=== PATIENT | female | born 1990 | race African-American/Black ===

== ENCOUNTER 2017-03-09 18:34 | Inpatient (IN) ==
[2017-03-09] MEDS ORDERED: ONDANSETRON 4 MG/2 ML VIAL IV STA (19:20)
[2017-03-09] MEDS ORDERED: MORPHINE 2 MG/1 ML SYRINGE IV STA (19:20)
[2017-03-09] MEDS ORDERED: MORPHINE 2 MG/1 ML SYRINGE ONE (20:18)
[2017-03-09] MEDS ORDERED: ONDANSETRON 4 MG/2 ML VIAL ONE (20:18)
--- NOTE | 2017-03-09 20:30 | Ultrasound Report ---
History is abdominal pain There are multiple gallstones present. Gallbladder wall thickness measures up to 4 mm No biliary ductal dilatation seen Hepatic and splenic size and echotexture is normal except for a 1.5 cm echogenic area in the liver No renal hydronephrosis seen bilaterally The visualized pancreas, IVC, and aorta are normal in size Impression: 1. Small calcification or less likely hemangioma in the liver 2. Cholelithiasis with nonspecific gallbladder wall thickening. Is there any clinical question of acute cholecystitis? The Ultrasound images were captured and stored. PROCEDURE INTERPRETED AT [facility] DEPARTMENT OF RADIOLOGY Final Report Signed by: Dr. Hannah Saunders
[2017-03-09 20:36] LABS: Basophils % 0.4 % (0.0-0.8); Eosinophils # 0.2 10*3/uL (0.0-0.87); Eosinophils % 1.8 % (0.00-10.9); Hematocrit 37.2 VOL% (35.7-47.0); Hemoglobin 12.8 GM/DL (12.0-16.0); Immature Granulocytes % 0.4 %; Immature Granulocytes Absolute 0.04 #; Lymphocytes # 2.3 10*3/uL (1.4-4.0); Lymphocytes % 23.7 % (21.3-54.2); Mean Corpuscular HGB Conc 34.4 GM/DL (32-36); Mean Corpuscular Hemoglobin 33 PG (27-34); Mean Corpuscular Volume 94.9 FL (87-102); Mean Platelet Volume 11.9 FL (9.6-12.0); Monocytes # 0.8 10*3/uL (0.11-0.8); Monocytes % 8.6 % (1.7-12.7); Neutrophils # 6.2 10*3/uL (1.4-7.4); Neutrophils % 65.1 % (38.7-73.9); Platelet Count 167 T/CUMM (130-400); Red Blood Count 3.92 MC/CUMM (3.8-5.5); Red Cell Distribution Width 12.2 % (9.3-17.3); White Blood Count 9.5 T/CUMM (4-12)
[2017-03-09 20:48] LABS: Albumin 3.4 G/DL (3.4-5.0); Bilirubin,Total 0.7 MG/DL (0.2-1.0); Calcium 9.1 MG/DL (8.5-10.1); Osmolality,Calculated 281.1 MOS/KG (273-304); Potassium 3.7 MMOL/L (3.5-5.1); Total Protein 6.5 G/DL (6.4-8.3)
[2017-03-09] MEDS ORDERED: ACETAMINOPHEN 325 MG TABLET PO PRN (20:55)
[2017-03-09] MEDS ORDERED: MORPHINE 2 MG/1 ML SYRINGE IV PRN (20:55)
[2017-03-09] MEDS ORDERED: ONDANSETRON 4 MG/2 ML VIAL IV PRN (20:55)
--- NOTE | 2017-03-09 20:55 | Emergency Department Note ---
IFan Gwan, am scribing for, and in the presence of, Marlon Stroud MD 19:27. IMaximus Kevin Lee, MD, personally performed the services described in this documentation, ascribed by Steve Chavira in my presence, and it is both accurate and complete . Arrival - Arrival Chief Complaint: Abdominal / Flank Pain Stated Complaint: chest pain/gallstones ED Nursing Triage Note: c/o abd pain that started yesterday. patient states that she went to [place] ER yesterday and they told her she had gallstones. Patient was but on some medication she says don't help with the pain. Mode of Arrival: Ambulatory Limitations: No Limitations Source: Patient, Old Records Reviewed, RN Notes Reviewed Time Seen by Provider: 03/09/17 19:20 - History of Present Illness HPI Narrative: Patient is a 26 y/o female who presents to the ED with a c/o abd pain with an onset yesterday. Patient stated that she reported to the [place] ED yesterday for same reason and had a ultrasound and an MRI completed that resulted in evidence of gallstones. She continued to note that her pain has progressively worsened today, now includes difficulty standing due to the intensity of her pain and little to no relief from prescribed pain medications. This prompted her visit to the ED for further evaluation. During exam, patient did not display any signs of distress. No other problems/complaints reported in ED. Onset (ago): day(s) Consistency: constant Severity: moderate Allergies/Adverse Reactions: Allergies Allergy/AdvReac Type Severity Reaction Status Date / Time No Known Allergies Allergy Verified 03/09/17 20:51 Home Medications: Home Medications Medication Instructions Recorded Confirmed Type Hydrocodone/Acetaminophen 5 mg PO Q3-4H PRN 03/09/17 03/09/17 History [Hydrocodon-Acetaminophen 5-325] Omeprazole [Omeprazole] 20 mg PO DAILY 03/09/17 03/09/17 History Promethazine Tab [Phenergan Tab] 25 mg PO Q6-8H PRN 03/09/17 03/09/17 History Review of System - Review of System 12 point system: reviewed and no additional remarkable complaints except as stated - Review of System Head/Ears/Nose/Throat: Absent: earache, epistaxis Respiratory: Absent: cough, wheezing Cardiovascular: Absent: chest pain, palpitations Gastrointestinal: Present: as per HPI, abdominal pain. Absent: nausea, vomiting , diarrhea Medical,Surgical,& Family Hx - Medical History Cardio: History of: Hypertension - Social History Smoking Status: Current every day smoker Frequency of Alcohol Use: None Type of Drug Use: None Exam Vital Signs: Vital Signs Temperature 98.6 F 03/09/17 20:31 Pulse Rate 89 03/09/17 20:31 Respiratory Rate 18 03/09/17 20:31 Blood Pressure 124/76 03/09/17 20:31 O2 Sat by Pulse Oximetry 97 03/09/17 18:39 - General General appearance: alert, in no apparent distress - Head Head exam: Present: atraumatic, normocephalic - Eye Eye exam: Present: normal appearance, PERRL, EOMI - ENT ENT exam: Present: normal oropharynx, mucous membranes moist, TM's normal bilaterally, normal external ear exam - Neck Neck exam: Present: full ROM, trachea midline. Absent: tenderness - Chest Chest inspection: Present: symmetric chest wall rise. Absent: tenderness - Respiratory Respiratory exam: Present: normal lung sounds bilaterally. Absent: respiratory distress - Cardiovascular Cardiovascular exam: Present: regular rate, normal rhythm, normal heart sounds. Absent: murmur - Abdominal Exam Abdominal exam: Present: soft, tenderness (Epigastric tenderness), normal bowel sounds. Absent: distention - Extremities Exam Extremities exam: Present: full ROM. Absent: tenderness - Back Exam Back exam: Present: full ROM. Absent: tenderness - Neurological Exam Neurological exam: Present: alert, oriented X3, CN II-XII intact. Absent: motor sensory deficit - Psychiatric Psychiatric exam: Present: normal affect, normal mood - Skin Skin exam: Present: warm, dry, intact, normal color Results - Labs CBC & BMP: 03/09/17 20:05 03/09/17 20:05 Lab Results: I have reviewed the patients labs - Diagnostic Findings Procedure: Ultrasound: image reviewed by me (acute cholecystitis) Disposition Clinical Impression: Acute cholecystitis Case discussed with: patient Disposition: Still a Patient Condition: Stable
[2017-03-09] MEDS: DEXTROSE 5% NACL 0.45% 1,000 ML IV SCH (23:52)
[2017-03-09] MEDS: PIPERACILLIN/TAZOBACTAM 3,375 MG in SODIUM CHLORIDE 0.9% 100 ML IV SCH (23:53)
[2017-03-10] MEDS: PIPERACILLIN/TAZOBACTAM 3,375 MG in SODIUM CHLORIDE 0.9% 100 ML IV SCH ×3 (06:53→22:41)
[2017-03-10] MEDS: PANTOPRAZOLE 40 MG TABLET PO SCH (10:24)
[2017-03-10] MEDS ORDERED: ceFAZolin 2,000 MG in PREMIX 1 EACH IV ONE (10:34)
--- NOTE | 2017-03-10 10:41 | General Surg History&Physical ---
Assessment and Plan - Time spent with patient Time spent with patient: Less than 30 minutes (1) Acute cholecystitis Status: Acute Assessment and plan: Impression: Abdominal pain probably secondary to cholecystitis cholelithiasis. 2. Epigastric pain radiating to the left side concerning the possibility this could be a pancreatitis 3. History of "reflux substernal discomfort. Plan: 1. Because of her pain to the left side will go ahead and plan to get a CT scan just to be sure we are not looking a pancreatitis or something else unusual. 2. We will plan to take her surgery tomorrow if everything looks in good shape at this time. Current Visit: Yes History of Present Illness Chief complaint: Abdominal pain epigastric substernal with radiation to the left History of present illness: Ms. Yun is a 26 year old female -Maltese who is been bothered by history of some reflux or indigestion that she has been treated for by her family physician.. She apparently went to some fast food place had a hot dog or so and then developed Saturday night abdominal pain epigastric in nature with some description of radiation to the left side. This is a little bit concerning in her presentation but this pain persisted with some nausea and vomiting. She went saw her family physician on Saturday to treat her for reflux and this was in [place] at which time they did do an ultrasound and note that she had gallstones but then made no follow-up or other arrangements for her. Her nausea and vomiting and this discomfort persisted even though she denies eating anything to stimulate at this time. Came to the emergency room here labs look in pretty good shape ultrasound showed stones that were present. She was admitted on some IV antibiotics is better at this point time no unusual tenderness present. She does have on exam a little discomfort in the right upper quadrant area less on to the left side. I am concerned about the fact that she does complain of this area of the left side some I go a get a CT to be sure we will have a pancreatitis brewing at this time. We will look at her labs that they remain stable with liver function studies normal that I think will move along with surgery tomorrow. Home Medications Medication Instructions Recorded Confirmed Type Hydrocodone/Acetaminophen 5 mg PO Q3-4H PRN 03/09/17 03/09/17 History [Hydrocodon-Acetaminophen 5-325] Omeprazole [Omeprazole] 20 mg PO DAILY 03/09/17 03/09/17 History Promethazine Tab [Phenergan Tab] 25 mg PO Q6-8H PRN 03/09/17 03/09/17 History Allergies Allergy/AdvReac Type Severity Reaction Status Date / Time No Known Allergies Allergy Verified 03/09/17 20:51 Medical,Surgical,& Family Hx - Medical History Cardio: History of: Hypertension Psychological: History of: Anxiety Disorders - Social History Smoking Status: Current every day smoker Frequency of Alcohol Use: None Type of Drug Use: None Exam - Constitutional Vitals: Period Temp Pulse Resp BP Sys/Soni Pulse Ox Last 24 Hr 97.8 F-98.6 F 65-89 16-18 95-124/64-76 94-97 General appearance: mild distress - Head Head exam: Present: normal inspection - ENT ENT exam: Present: normal exam - Neck Neck exam: Present: normal inspection - Respiratory Respiratory exam: Present: clear to auscultation bilaterally, rales - Cardiovascular Cardiovascular exam: Present: RRR - GI/Abdominal GI/Abdominal exam: Present: hypoactive bowel sounds, tenderness (Just to the right of midline epigastric area), soft. Absent: distended, mass - Extremities Exam Extremities exam: Present: normal inspection - Back Exam Back exam: Present: normal inspection - Neurological Exam Neurological exam: Present: alert, oriented X3, CN II-XII intact - Skin Skin exam: Present: normal color, warm, dry 12 point system: reviewed and no additional remarkable complaints except as stated Quality Measures - VTE Contraindication to Pharmacological VTE Prophylaxis: High Risk of Bleeding Results - Labs CBC & BMP: 03/09/17 20:05 03/09/17 20:05 Lab Results: I have reviewed the past 24 hour labs
[2017-03-10 11:05] LABS: Basophils % 0.4 % (0.0-0.8); Eosinophils # 0.2 10*3/uL (0.0-0.87); Eosinophils % 3.1 % (0.00-10.9); Hematocrit 36.3 VOL% (35.7-47.0); Hemoglobin 12.2 GM/DL (12.0-16.0); Immature Granulocytes % 0.4 %; Immature Granulocytes Absolute 0.02 #; Lymphocytes # 1.9 10*3/uL (1.4-4.0); Lymphocytes % 34.4 % (21.3-54.2); Mean Corpuscular HGB Conc 33.6 GM/DL (32-36); Mean Corpuscular Hemoglobin 32 PG (27-34); Mean Corpuscular Volume 95.5 FL (87-102); Mean Platelet Volume 11.5 FL (9.6-12.0); Monocytes # 0.4 10*3/uL (0.11-0.8); Monocytes % 6.5 % (1.7-12.7); Neutrophils # 3.1 10*3/uL (1.4-7.4); Neutrophils % 55.2 % (38.7-73.9); Platelet Count 165 T/CUMM (130-400); Red Cell Distribution Width 12.4 % (9.3-17.3); White Blood Count 5.5 T/CUMM (4-12)
[2017-03-10 11:14] LABS: PT Patient Result 10.7 SECS
[2017-03-10 11:42] LABS: Albumin 3.2 G/DL (3.4-5.0); Calcium 8.7 MG/DL (8.5-10.1); Osmolality,Calculated 279.3 MOS/KG (273-304); Potassium 3.8 MMOL/L (3.5-5.1); Total Protein 6.1 G/DL (6.4-8.3)
--- NOTE | 2017-03-10 14:46 | CT Report ---
Exam: CT abdomen and pelvis with intravenous contrast Exam date: 03/10/2017 10:36 AM Clinical History: 26-year-old,Female, abdominal pain with Technique: Axial computed tomography images of the abdomen and pelvis with intravenous contrast. All CT scans at this facility use one or more dose reduction techniques. Automated exposure control, MA/KV adjustment per patient size (including targeted exam Square dose is matched to indication) or iterative reconstruction technique Contrast: 100 mL of Omnipaque 350 administered intravenously Comparison: Ultrasound from previous day at 0743 hours Findings: Lower thorax: No acute pathologic findings at the lung bases Abdomen: Liver: Increased enhancement along the gallbladder fossa Gallbladder and bile ducts: Circumferential gallbladder wall thickening. Noncalcified stones demonstrated on ultrasound are not readily visualized by CT. Pancreas: Unremarkable Spleen: Spleen is normal. Adrenals: No adrenal mass. Kidneys and ureters: Kidneys are normal in size, morphology and enhancement. No hydronephrosis. No ureteral calculus. Stomach and bowel: No evidence of acute gastritis, colitis or enteritis. No bowel obstruction. Intraperitoneal space: No pneumoperitoneum. No significant intraperitoneal fluid Urinary bladder is decompressed. Prominence of the bilateral ovaries. Uterus is unremarkable. Bones/joints: No acute osseous abnormality Soft tissues: No mass Vasculature: No aortic aneurysm. . Lymph nodes: No adenopathy Impression: 1. Known cholelithiasis with gallbladder wall thickening and reactive hepatic enhancement along the gallbladder fossa highly suggestive of acute cholecystitis PROCEDURE INTERPRETED AT [facility] DEPARTMENT OF RADIOLOGY Final Report Signed by: Greg Berman
[2017-03-10] MEDS: DOCUSATE SODIUM 100 MG CAPSULE PO SCH (20:14)
[2017-03-10] MEDS: HYDROmorphone 2 MG/1 ML VIAL IV PRN (21:41)
[2017-03-11] MEDS: DEXTROSE 5% NACL 0.45% 1,000 ML IV SCH ×2 (03:37→17:35)
[2017-03-11] MEDS ORDERED: ceFAZolin 2,000 MG in PREMIX 1 EACH IV ONE (05:30)
[2017-03-11] MEDS: PIPERACILLIN/TAZOBACTAM 3,375 MG in SODIUM CHLORIDE 0.9% 100 ML IV SCH ×3 (06:08→22:39)
[2017-03-11] MEDS ORDERED: DIAZEPAM 5 MG TABLET PO ONE (06:09)
[2017-03-11] MEDS ORDERED: FAMOTIDINE 20 MG TABLET PO ONE (06:09)
[2017-03-11] MEDS ORDERED: TISSUE ADHESIVE 1 EACH APPLICATOR TOP ONE (06:13)
[2017-03-11] MEDS ORDERED: BUPIVACAINE 0.5% /EPI 10 ML VIAL ONE (07:09)
--- NOTE | 2017-03-11 08:57 | Anesthesia Post-Op ---
Anesthesia Post OP - Post Ansesthetic Evaluation Patient seen in post op: Yes Resp: within normal limits CV: within normal limits Mental: within normal limits Temp: within normal limits [id number]: within normal limits Nausea and Vomiting: within normal limits Pain: within normal limits
--- NOTE | 2017-03-11 08:58 | Operative Note ---
Date of procedure: 03/11/17 Pre-op diagnosis: Cholecystitis with cholelithiasis Post-op diagnosis: same Procedure: Operative note: Preoperative diagnosis: Cholecystitis cholelithiasis. Postoperative diagnosis: Same Procedure: Laparoscopic cholecystectomy with intraoperative cholangiogram. Surgeon Dr. Sharp Anesthesia was general with local Brief history: 26-year-old -[place] female comes in with abdominal pain nausea and vomiting been going on since Saturday. She had been to the [facility] [place] where she had an ultrasound showing that she had stones but nothing was done at that time. She came into the ER early Saturday morning continued to have discomfort we put her in. Lab studies look normal I went ahead and get a CT scan because she was complaining of discomfort to the left side and all I can see at this point so that the pancreas was okay that the amylase and lipases were normal. At that point I like to go ahead and bring the surgery get this out since she has stones and thickened wall. Procedure: With patient in the supine position prepped and draped in sterile fashion timeout and antibiotics completed we approach this area the abdomen. Made an incision after infiltrated with local anesthetic hair just above the umbilicus going to the skin subtenons tissue carefully dissected down to the fascia. I incised the fascia and then we elevated the peritoneum opened it under direct vision and entered the peritoneal cavity under direct vision. 11 mm trocar was inserted and 3 L of CO2 was instilled into the abdomen. We then put our scope and begin to look around the pelvic area looked okay liver looked a little bit large but smooth and did not have any fatty changes significant to it at this time. At that point we placed in a 5 mm trocar at the anterior axillary midclavicular line and another 11 mm trocar in the epigastric area all under direct vision. With that completed then we put the patient upright tilted left side position. I then elevated up the liver can see the gallbladder with adhesions underneath it from the omentum and it was grayish and thickened. I was able get a grasper on the fundus of the gallbladder and elevated up at this time. Dissected the omental adhesions free from the underside of the gallbladder and grasped the infundibulum and elevated up. With careful dissection I exposed the cystic duct at this point time consider going into the common duct easily and it looked little bit thickened also. At that point I placed a clip on it at the base of the gallbladder proximally and we made incision in the cystic duct itself. Cholangiocath was inserted and clipped in place. I went ahead and did several x-rays that showed we were in the cystic duct good upper radicles good flow into the duodenum but no stones present. At that point then went back reexcised established exposure remove the Cholangiocath and I placed 3 clips across the cystic duct distally being careful not to compromise the common duct. I then divided the cystic duct and begin careful dissection to identify the cystic artery. Once cystic artery was exposed and placed 3 clips on approximately 1 distally we divided it. I next begin to dissected gallbladder out by incising the peritoneal attachments anteriorly and posteriorly using sharp and blunt dissection with electrocauterization controlling bleeding. We carefully dissected gallbladder out of the liver bed until it was free and was placed in an Endo Catch bag we pulled it out through the umbilical port. With the gallbladder out we went back elevated the liver washed in cleaned the liver bed touch several areas that were still have little bit of oozing and bleeding that we had good control. Once there is no sign of any bleeding we washed and cleaned out under and above the liver is get as much fluid as possible. With that completely clean and in no bleeding we then pulled the trocar sites with no bleeding from them. At that point we went back at the umbilicus closed down the fascia with interrupted 0 Monocryl suture close the subcutaneous tissue with 3-0 Vicryl closed skin and skin clips. I then closed the subtenons tissue the epigastric port with a interrupted 3-0 Vicryl and closed skin with skin clips. We then closed the lateral ports with skin clips also. At that point time we then put a light dressings over the skin clips and took patient recovery room. Estimated blood loss 20 cc sponge count correct 2 Drains none Complications none condition stable satisfactory Anesthesia: GETA, local (0.25% Marcaine with epinephrine mixed half and 1% Xylocaine plain) Surgeon / Physician: Cesar Sharp Estimated blood loss: other (20 cc) Specimens: other (Gallbladder) Condition: stable Disposition: floor Results - Labs CBC & BMP: 03/10/17 10:59 03/10/17 10:59 Discharge Plan - Discharge Medications No Action Hydrocodone/Acetaminophen [Hydrocodon-Acetaminophen 5-325] 5 mg PO Q3-4H PRN PRN Reason: Abdominal Pain Promethazine Tab [Phenergan Tab] 25 mg PO Q6-8H PRN PRN Reason: Abdominal Pain Omeprazole [Omeprazole] 20 mg PO DAILY - Follow Up or Referral - Forms/Instructions
[2017-03-11] MEDS ORDERED: PROPOFOL 200 MG/20 ML VIAL IV ONE (09:01)
[2017-03-11] MEDS ORDERED: fentaNYL 100 MCG/2 ML VIAL ONE ×2 (09:01→09:03)
[2017-03-11] MEDS ORDERED: SEVOFLURANE 1 UNIT/15 MINUTE INH ONE (09:01)
[2017-03-11] MEDS ORDERED: MIDAZOLAM 2 MG/2 ML VIAL ONE (09:01)
[2017-03-11] MEDS ORDERED: KETOROLAC 30 MG/1 ML VIAL ONE (09:02)
[2017-03-11] MEDS ORDERED: ONDANSETRON 4 MG/2 ML VIAL ONE (09:02)
[2017-03-11] MEDS ORDERED: NEOSTIGMINE 10 MG/10 ML VIAL ONE (09:02)
[2017-03-11] MEDS ORDERED: ROCURONIUM 100 MG/10 ML VIAL IV ONE (09:02)
[2017-03-11] MEDS ORDERED: DEXAMETHASONE 10 MG/1 ML VIAL ONE (09:02)
[2017-03-11] MEDS ORDERED: GLYCOPYRROLATE 0.4 MG/2 ML VIAL ONE (09:02)
[2017-03-11] MEDS ORDERED: LACTATED RINGERS 1,000 ML IV ONE (09:02)
[2017-03-11] MEDS: HYDROmorphone 2 MG/1 ML VIAL IV PRN ×9 (09:13→22:46)
[2017-03-11] MEDS ORDERED: HYDROmorphone 2 MG/1 ML VIAL ONE ×2 (09:13→09:38)
[2017-03-11] MEDS: DOCUSATE SODIUM 100 MG CAPSULE PO SCH ×2 (09:29→20:14)
[2017-03-11] MEDS: PANTOPRAZOLE 40 MG TABLET PO SCH (09:29)
[2017-03-11] MEDS: KETOROLAC 15 MG/1 ML VIAL IV SCH ×3 (11:40→20:14)
[2017-03-11] MEDS: ceFAZolin 2,000 MG in PREMIX 1 EACH IV SCH ×2 (14:55→22:39)
[2017-03-11 16:33] LABS: Hemoglobin 12.8 GM/DL (12.0-16.0)
--- NOTE | 2017-03-11 17:48 | Fluoroscopy Report ---
[place] cholangiogram in surgery Clinical Information: Intraoperative fluoroscopy for cholangiogram Comparison: None available Findings: Total fluoroscopy time [address] Sharp. Intraoperative contrast injection demonstrates normal appearance of the intrahepatic and extrahepatic bile ducts with no definite residual filling defects or obstruction of contrast flow into the duodenum. Images were evaluated by the attending surgeon at the time of the procedure. Impression: Intraoperative fluoroscopy as detailed above. PROCEDURE INTERPRETED AT [facility] DEPARTMENT OF RADIOLOGY Final Report Signed by: [place]
[2017-03-11] MEDS ORDERED: ALUMINUM/MAGNES/SIMETH MAX STR 30 ML UDCUP PO PRN (19:28)
[2017-03-12] MEDS: KETOROLAC 15 MG/1 ML VIAL IV SCH ×2 (02:45→09:44)
[2017-03-12] MEDS ORDERED: diphenhydrAMINE CAP 25 MG CAPSULE PO ONE (03:05)
[2017-03-12] MEDS: PIPERACILLIN/TAZOBACTAM 3,375 MG in SODIUM CHLORIDE 0.9% 100 ML IV SCH (06:34)
[2017-03-12 06:35] LABS: Basophils % 0.3 % (0.0-0.8); Eosinophils # 0.1 10*3/uL (0.0-0.87); Eosinophils % 0.7 % (0.00-10.9); Hematocrit 34.5 VOL% (35.7-47.0); Hemoglobin 11.6 GM/DL (12.0-16.0); Immature Granulocytes % 0.4 %; Immature Granulocytes Absolute 0.03 #; Lymphocytes # 1.7 10*3/uL (1.4-4.0); Lymphocytes % 21.8 % (21.3-54.2); Mean Corpuscular HGB Conc 33.6 GM/DL (32-36); Mean Corpuscular Hemoglobin 32 PG (27-34); Mean Platelet Volume 12.2 FL (9.6-12.0); Monocytes # 0.5 10*3/uL (0.11-0.8); Neutrophils # 5.4 10*3/uL (1.4-7.4); Neutrophils % 70.8 % (38.7-73.9); Platelet Count 175 T/CUMM (130-400); Red Blood Count 3.67 MC/CUMM (3.8-5.5); Red Cell Distribution Width 11.7 % (9.3-17.3); White Blood Count 7.7 T/CUMM (4-12)
[2017-03-12 06:52] LABS: Calcium 8.1 MG/DL (8.5-10.1); Osmolality,Calculated 280.4 MOS/KG (273-304); Potassium 3.9 MMOL/L (3.5-5.1)
[2017-03-12 07:36] VITALS: BP 118/71
[2017-03-12] MEDS ORDERED: ENOXAPARIN 40 MG/0.4 ML SYRINGE SUBCUT SCH (08:00)
--- NOTE | 2017-03-12 08:04 | Discharge Summary ---
Hospital Course - Hospital Course Hospital Course: Discharge summary: Discharge diagnosis: Cholecystitis with cholelithiasis. Procedure: Laparoscopic cholecystectomy with intraoperative cholangiogram Surgeon Dr. Sharp Brief history: 26-year-old -Greek female comes in with a history of abdominal pain epigastric in nature with some substernal discomfort in the left sided abdominal pain also. She was seen at an outside facility were ultrasound on Saturday showed stones but they did not admit her or center anywhere just told her she needed to see somebody. Symptoms did not get better they got worse and she came into the emergency room Saturday morning here where we admitted her. Her ultrasound here confirms the stones and some gallbladder wall thickening. Her amylase lipases were normal as well as liver function studies. I was a little bit concerned with her complaining of discomfort on the left side rather than on the right so I went ahead and did a CT scan of the abdomen that did not show any pancreatitis at this time or any other lesions present. With that and went ahead and took her to surgery the next day at which time we were able to do a laparoscopic cholecystectomy with intraoperative cholangiogram. He clearly had an acute thick and grayish gall bladder that was dissected out and the cholangiogram was normal. At this point postoperatively she did well her labs this morning this with her hematocrit of 30. Vital signs have been stable she is tolerated her diet well without problems. I talked to her and she feels like she could go home so we will go ahead and plan to discharge her today. Given instructions on care of the wounds as to what she can and cannot do at this point. Will follow her up in the office in a couple weeks get her clips out. - Time spent with patient Time with patient DS: Less than 30 minutes Diagnosis - Discharge Diagnosis (1) Acute cholecystitis Status: Resolved Specialty Discharge - Follow Up or Referrals Follow up with: Cesar Sharp MD [Physician] - 2 Weeks (suture removal) Discharge Plan - Discharge Data Disposition: Disch To Home/Self Care Condition at Discharge: Stable Discharge Diet: low fat, low cholesterol Activity: increase activity as tolerated, no lifting, no prolonged standing Hygiene: may shower Weight Bearing at Discharge: full weight bearing Driving: not for (1 week) Contact your physician if you experience:: fever over 101, Redness or swelling, Nausea/Vomiting, pain uncontrolled by pain medications Wound / Dressing Care Instructions: Wound care to the abdominal incisions. Daily. 1. May shower and wash and use soap of choice. 2. After the shower pat the incisions dry and cover with a large Band-Aid or a 4 x 4 gauze. 3. If there is any unusual dryness to the incision she may use a little Neosporin to them - Discharge Medications New HYDROcodone/ACETAMIN 7.5-325 [[place] 7.5-325] 1 tablet PO Q6H PRN #30 tablet PRN Reason: Pain Moderate (4-7) Acetaminophen Tab [Tylenol Tab] 650 mg PO Q6H PRN tablet PRN Reason: Pain Mild (1-3) And/Or Fever Docusate Sodium Cap [Colace Cap] 100 mg PO DAILY #20 capsule Continue Promethazine Tab [Phenergan Tab] 25 mg PO Q6-8H PRN PRN Reason: Abdominal Pain Omeprazole 20 mg PO DAILY Discontinued Hydrocodone/Acetaminophen [Hydrocodon-Acetaminophen 5-325] 5 mg PO Q3-4H PRN PRN Reason: Abdominal Pain - Follow Up or Referral Follow Up: Cesar Sharp MD [Physician] - - Forms/Instructions Forms: Acute Care Work/School Release Exam - Constitutional Vitals: Period Temp Pulse Resp BP Sys/Soni Pulse Ox Last 24 Hr 97.4 F-98.6 F 66-99 14-20 102-139/57-80 92-100 General appearance: mild distress, over weight - Head Head exam: Present: normal inspection - ENT ENT exam: Present: normal exam - Neck Neck exam: Present: normal inspection - Respiratory Respiratory exam: Present: clear to auscultation bilaterally, rales - Cardiovascular Cardiovascular exam: Present: regular rate and rhythm - GI/Abdominal GI/Abdominal exam: Present: hypoactive bowel sounds, soft, other (Incisions clean and dry.) - Extremities Exam Extremities exam: Present: normal inspection - Back Exam Back exam: Present: normal inspection - Neurological Exam Neurological exam: Present: alert, oriented X3, CN II-XII intact - Psychiatric Psychiatric exam: Present: normal affect, normal mood - Skin Skin exam: Present: normal color, warm, dry Discharge Results Labs on day of discharge: Labs from last 24 hours 03/12/17 03/12/17 03/11/17 04:46 04:46 15:54 WBC 7.7 D RBC 3.67 L Hgb 11.6 L 12.8 Hct 34.5 L 39.0 MCV 94.0 MCH 32 MCHC 33.6 RDW 11.7 Plt Count 175 MPV 12.2 H Neut % (Auto) 70.8 Lymph % (Auto) 21.8 [place] % (Auto) 6.0 Eos % (Auto) 0.7 Baso % (Auto) 0.3 Neut # (Auto) 5.4 Lymph # (Auto) 1.7 [place] # (Auto) 0.5 Eos # (Auto) 0.1 Baso # (Auto) 0.0 Immature Gran % 0.4 Nucleated RBC % 0.0 Immature Gran # 0.03 Nucleated RBCs # 0.00 Immature Plt Fraction 0.0 Sodium 140 Potassium 3.9 Chloride 105 Carbon Dioxide 30 Anion Gap 8.9 BUN 12 Creatinine 0.90 GFR Calculation 120 BUN/Creatinine Ratio 13.00 Glucose 135 H Calculated Osmolality 280.4 Calcium 8.1 L DS: Provider Date of admission: 03/09/17 20:55 Primary care physician: . No PCP Attending physician on admission: Cesar Sharp MD Consults: 03/10/17 10:37 Consult to Anesthesiology [CONS] Routine Consulting Provider: Reason for Anesthesiology: Pre-op Clearance Discharging clinician: Cesar Sharp MD Expected date of discharge: 03/12/17
[2017-03-12] MEDS: DEXTROSE 5% NACL 0.45% 1,000 ML IV SCH (08:05)
[2017-03-12] MEDS: DOCUSATE SODIUM 100 MG CAPSULE PO SCH (09:44)
[2017-03-12] MEDS: PANTOPRAZOLE 40 MG TABLET PO SCH (09:44)
--- NOTE | 2017-03-12 12:19 | Pathology Report from [facility] ---
[facility] [place] ACCESSION # : [id number] PATIENT NAME : Katie Yun ORDERING DR : ROSEANNE ZAVALA MD CLINICAL HX: Cholecystitis, cholelithiasis POST-OP DX: Same SPECIMEN INFO: Gallbladder GROSS DESCRIPTION: Received in formalin labeled KATIE YUN & GALLBLADDER is an intact gallbladder measuring 8.5 x 3.4 cm. The serosa is smooth and erythematous maloney camejo. The gallbladder wall has a thickness of 0.2 cm. The mucosa is granular yellow camejo with focal areas of ulceration present. The lumen contains dark brown bile admixed with numerous camejo yellow stones measuring in aggregate 2 x 1.5 cm. Stone fragments are also located within the cystic duct. [employer] sections are submitted in one cassette. DIAGNOSIS FOR KATIE YUN: GALLBLADDER, CHOLECYSTECTOMY: Acute, necrotizing cholecystitis. Cholelithiasis. COLLECTED DATE: 03/11/2017 [facility] REPORT DATE: 03/12/2017 ELECTRONICALLY SIGNED BY: Sharri Enriquez M.D. 03/12/2017 - 11:00:30 ELIGIO
== END 2017-03-12 10:45 | disposition home or self-care (01) | DRG 419 ==
LOC: N.ED 18:34 → N.EDINP 20:55 → N.3E 21:46
PROVIDERS: ADMIT Specialist; ATTEND Specialist
PROC: LAPCHOL (2017-03-11 06:56)